=== PATIENT | male | born 1995 | race Caucasian/White ===

== ENCOUNTER 2019-05-20 19:03 | Emergency (ER) | payer OTHER, SELFPAY ==
[2019-05-20 19:18] VITALS: BP 133/77; PULSE 85; RESP 18; TEMP 36.6; O2SAT 99
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
[2019-05-20] MEDS: KETOROLAC 60 MG/2 ML VIAL IM (19:40)
[2019-05-20 20:41] VITALS: BP 128/74; PULSE 80; RESP 16; O2SAT 98
[2019-05-20] MEDS: CYCLOBENZAPRINE 10 MG TABLET PO (20:43)
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
[2019-05-20] MEDS: HYDROCODONE/ACET 5/325 TABLET 1 TAB PO (21:36)
[2019-05-20] MEDS: CYCLOBENZAPRINE 10 MG PREPACK 1 BOTTLE MISC (21:37)
[2019-05-20] MEDS: HYDROCODONE/ACET 5/325 PREPACK 1 BOTTLE MISC (21:37)
[2019-05-20 21:41] VITALS: BP 116/89; PULSE 80; RESP 16; O2SAT 98
== END 2019-05-20 21:49 | disposition home or self-care (01) ==
PROVIDERS: Emergency Provider Nurse Practitioner Family
DX: M62.838 Other muscle spasm (principal); M25.512 Pain in left shoulder; S13.4XXA Sprain of ligaments of cervical spine, initial encounter; V43.52XA Car driver injured in collision with other type car in traffic accident, initial encounter
CPT/HCPCS: 72070; 72100; 72125; 73030; 96372; 99283; 99284; J1885